=== PATIENT | female | born 1945 | race Caucasian/White ===

== ENCOUNTER 2018-03-04 16:05 | Emergency (ER) | payer MEDICARE ==
[2018-03-04 16:19] VITALS: BP 146/58
--- NOTE | 2018-03-04 16:26 | ED ---
Upper Extremity Pain - HPI Summary HPI Summary: 72 yr old female with the complaint of left elbow, wrist pain. The patient fell off her porch and landed with palm of her hand striking concrete. The patient complains of pain to the left elbow and also over the distal radius of the left wrist. No STS. no bruise. She did not pass out. she was talking to her son and not paying attention to a step and fell as a result. The pain is moderate and worse with movement. - History of Current Complaint Chief Complaint: UCUpperExtremity Stated Complaint: LEFT ARM/HAND PAIN (JUST FELL) Time Seen by Provider: 03/04/18 16:23 - Allergies/Home Medications Allergies/Adverse Reactions: Allergies Allergy/AdvReac Type Severity Reaction Status Date / Time articaine Allergy Unknown Verified 03/04/18 16:21 Reaction Details benzocaine Allergy Unknown Verified 03/04/18 16:21 Reaction Details Cephalosporins Allergy See Comment Verified 03/04/18 16:21 Penicillins Allergy Swelling Verified 03/04/18 16:21 Of Face,Lips,& Throat Sulfa (Sulfonamide Allergy Unknown Verified 03/04/18 16:21 Antibiotics) Reaction Details PMH/Surg Hx/FS Hx/Imm Hx Previously Healthy: Yes Endocrine/Hematology History: Denies: Hx Diabetes Cardiovascular History: Reports: Hx Angina, Hx Hypercholesterolemia, Hx Hypertension Denies: Hx Coronary Artery Disease, Hx Myocardial Infarction, Hx Valvular Heart Disease Respiratory History: Denies: Hx Asthma, Hx Chronic Obstructive Pulmonary Disease (COPD) History: Reports: Hx Kidney Stones Musculoskeletal History: Reports: Hx Back Problems - chronic back pain Denies: Hx Osteoporosis Sensory History: Reports: Hx Contacts or Glasses Opthamlomology History: Reports: Hx Contacts or Glasses - Cancer History Hx Chemotherapy: No Hx Radiation Therapy: No - Surgical History Surgery Procedure, Year, and Place: R OVARY CYST REMOVED Infectious Disease History: No Infectious Disease History: Denies: Traveled Outside the [place] in Last 30 Days - Family History Known Family History: Positive: None - Social History Alcohol Use: None Substance Use Type: Reports: None Smoking Status (MU): Former Smoker Have You Smoked in the Last Year: No Review of Systems Constitutional: Negative Positive: Other - elbow and wrist pain All Other Systems Reviewed And Are Negative: Yes Physical Exam Triage Information Reviewed: Yes Vital Signs On Initial Exam: Initial Vitals Temp Pulse Resp BP Pulse Ox 97.5 F 104 21 146/58 99 03/04/18 16:15 03/04/18 16:15 03/04/18 16:15 03/04/18 16:15 03/04/18 16:15 Vital Signs Reviewed: Yes Appearance: Positive: Well-Appearing, No Pain Distress Skin: Positive: Warm Head/Face: Positive: Normal Head/Face Inspection Eyes: Positive: EOMI ENT: Positive: Normal ENT inspection Neck: Positive: Nontender Respiratory/Lung Sounds: Positive: Clear to Auscultation, Breath Sounds Present Cardiovascular: Positive: Pulses are Symmetrical in both Upper and Lower Extremities - radial pulse strong. Abdomen Description: Negative: Distended Musculoskeletal: Positive: Other - She has tenderness over the radial head and over the distal radius left arm. No STS or bruising present. The left clavicle and left shoulder are non tender and full range of motion. Left hand is without tenderness, no deformity, no bruises. Neurological: Positive: Sensory/Motor Intact, Alert, Oriented to Person Place, Time, CN Intact II-III Psychiatric: Positive: Normal AVPU Assessment: Alert - Grant Coma Scale Best Eye Response: 4 - Spontaneous Best Motor Response: 6 - Obeys Commands Best Verbal Response: 5 - Oriented Coma Scale Total: 15 Diagnostics - Vital Signs Vital Signs Temp Pulse Resp BP Pulse Ox 03/04/18 16:15 97.5 F 104 21 146/58 99 - Laboratory Lab Statement: Any lab studies that have been ordered have been reviewed, and results considered in the medical decision making process. - Radiology left wrist, forearm, elbow Xray Interpretation: No Acute Changes Radiology Interpretation Completed By: Radiologist Course/Dx - Course Course Of Treatment: 72 yrold female with left forearm elbow wrist pain after breaking fall with her left hand. - Diagnoses Provider Diagnoses: Contusion of arm, left, Hypertension Discharge - Sign-Out/Discharge Documenting (check all that apply): Patient Departure - Discharge Plan Condition: Good Disposition: HOME Patient Education Materials: Contusion in Adults (ED), Hypertension (ED) Referrals: Florentin Salazar MD [Primary Care Provider] - 3 Days - Billing Disposition and Condition Condition: GOOD Disposition: Home
--- NOTE | 2018-03-04 17:04 | RAD ---
INDICATION: Left upper terminate pain after a fall COMPARISON: None. TECHNIQUE: 4 views left elbow, 2 views of the left forearm and 3 views left wrist. REPORT: The visualized bones of the left elbow are well corticated and properly aligned. There is no radiographically apparent fracture or dislocation. There is no radiographic evidence of pathologic joint effusion. IMPRESSION: No radiographically apparent fracture or dislocation involving the left elbow, forearm or wrist. If the patient's symptoms persist further follow-up imaging is recommended.
== END 2018-03-04 17:16 | disposition home or self-care (01) ==
LOC: UCCORT 16:05
DX: S50.02XA Contusion of left elbow, initial encounter (principal); S60.212A Contusion of left wrist, initial encounter; I10 Essential (primary) hypertension; G89.29 Other chronic pain; M54.9 Dorsalgia, unspecified; Z88.4 Allergy status to anesthetic agent; Z88.8 Allergy status to other drugs, medicaments and biological substances; Z88.0 Allergy status to penicillin; Z88.1 Allergy status to other antibiotic agents; Z88.2 Allergy status to sulfonamides; Z87.891 Personal history of nicotine dependence; Y92.89 Other specified places as the place of occurrence of the external cause; W19.XXXA Unspecified fall, initial encounter; Y92.9 Unspecified place or not applicable
CPT/HCPCS: 99211; G0463

== ENCOUNTER 2018-07-01 09:47 | Emergency (ER) | payer MEDICARE ==
--- OUTSIDE RECORDS SUMMARY | 2018-07-01 10:03 | XMS REPORT ---
:1945 External Reference #:[id number] Author Organization [facility] Address [address] [place] [address] Phone [phone] Care Team Providers Name Role Phone Florentin Salazar MD Primary Care Physician Unavailable Payers Type Date Identification Numbers Payment Provider Subscriber Medicare Primary Policy Number: [id number] Medicare Masha Paz PayID: [id number] [address] [place] [address] Medigap Part B Effective: 2012 Policy Number: [id number] Medicare Masha Paz Expires: 2018 PayID: [id number] [address] [place] [address] Medigap Part B Effective: Policy Number: [employer] Masha Paz 2012 [id number] Healthcare PayID: [id number] [address] [place] [address] Advance Directives Type Date Description Status Comment Other Directive 05/31/2017 [facility] Care Proxy Current and Verified Problems Date Description Provider Status Onset: 02/02/2015 Benign essential hypertension Florentin Salazar M.D. Active Onset: 02/18/2015 Gastroesophageal reflux disease Florentin Salazar M.D. Active Onset: 03/02/2015 Generalized anxiety disorder Florentin Saalzar M.D. 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 Active Onset: 01/06/2016 Mixed hyperlipidemia Florentin Salazar M.D. Active Onset: 03/19/2018 Arthralgia of the upper arm Florentin Salazar M.D. Active Family History Date Family Member(s) Problem(s) Comments Father Heart Disease ETOH Abuse Mother Lung Cancer ETOH Abuse Age 75 Siblings 2 1 Brother - MVA - Opioid addict Age 72 1 Sister - Emphysema, Back issues, HTN Age 55 Social History Type Date Description Comments Occupation Retired Cigars Never Smoked Cigars Pipe Never Smoked A Pipe Smokeless Tobacco Never Used Smokeless Tobacco ETOH Use Denies alcohol use Smoking Patient is a former smoker Quit age 32 Recreational Drug Use Denies Drug Use Allergies, Adverse Reactions, Alerts Date Description Reaction Status Severity Comments 02/02/2015 Cephalosporins Anaphylaxis active Severe 02/02/2015 Penicillins burning sensation in active Moderate mouth 02/02/2015 Sulfa Antibiotics burning sensation in active Moderate to mouth Severe 02/02/2015 Bactrim burning sensation in active Moderate to mouth Severe 02/02/2015 Latex active Moderate to Severe 02/02/2015 Benzocaine active 02/02/2015 Septocaine active 02/02/2015 Articaine active 02/22/2015 Omeprazole palpitation active palpitations Medications Medication Date Status Form Strength Qnty SIG Indications Ordering Provider Acetaminophen 05/31/ Active Tablets 325mg 60tabs 2 tablets Eleanor 2016 by mouth Varn, N.P. every 6 hours as needed for pain/feve r Alprazolam 05/31/ Active Tablets 0.25mg 30tabs one by Z00.01 Eleanor 2016 Dispers mouth up Varn, N.P. to two times daily as needed for anxiety Motrin Ib / Active Tablets 200mg as needed Unknown 0000 Amlodipine / Active Tablets 5mg 60tabs take one Florentin Besylate 0000 tablet by Pachika, mouth M.D. twice daily Escitalopram 03/02/ Hx Tablets 5mg 21tabs 1 by 300.02 Florentin Oxalate 2014 - mouth Pachikara, 03/03/ every day M.D. 2014 x 1 week then 2 tab daily Alprazolam 02/23/ Hx Tablets 0.25mg 30tabs one by F41.1 Florentin 2014 - Dispers mouth up Pachikara, 05/29/ to two M.D. 2016 times daily as needed for anxiety Omeprazole 02/21/ Hx Capsules 20mg 60caps 1 by 530.81 Florentin 2014 - DR mouth in Pachikara, 02/22/ am in M.D. 2014 empty stomach and 1 cap 1 h before dinner Omeprazole 02/18/ Hx Tablets DR 20mg 30tabs 1 by 530.81 Florentin 2015 - mouth Pachikara, 02/21/ daily in M.DBritta 2014 the morning in empty stomach Aspirin / Hx Tablets 81mg 1 by Unknown 0000 - mouth 02/18/ every day 2014 Amlodipine / Hx Tablets 5mg 30tabs 1 by Florentin Besylate 0000 - mouth Pachikara, 02/21/ every day M.DBritta 2014 Alprazolam / Hx Tablets 0.25mg one by Unknown 0000 - Dispers mouth up 03/02/ to three 2015 times daily as needed for anxiety Debrox / Hx Solution 6.5% 5 drops Unknown 0000 - in each ear every 2014 month Tylenol / Hx Tablets 325mg 2 tabs as Unknown 0000 - needed 2015 Vital Signs Date Vital Result Comment 06/05/2018 Height 58.5 inches 131 Weight 131.00 lb Heart Rate 93 /min BP Systolic 154 mmHg BP Diastolic 79 mmHg Body Temperature 97.1 F O2 % BldC Oximetry 97 % BMI (Body Mass Index) 26.9 kg/m2 03/26/2018 Height 58.25 inches 4'10.25" Weight 130.25 lb Heart Rate 78 /min BP Systolic 146 mmHg BP Diastolic 78 mmHg Respiratory Rate 12 /min Pain Level 4 BMI (Body Mass Index) 27.0 kg/m2 03/19/2018 Height 58.25 inches 4'10.25" Weight 129.00 lb Heart Rate 96 /min BP Systolic Sitting 147 mmHg BP Diastolic Sitting 83 mmHg O2 % BldC Oximetry 98 % BMI (Body Mass Index) 26.7 kg/m2 10/09/2017 Height 58.25 inches 4'10.25" Weight 129.50 lb Heart Rate 90 /min BP Systolic Sitting 160 mmHg BP Diastolic Sitting 82 mmHg O2 % BldC Oximetry 97 % BMI (Body Mass Index) 26.8 kg/m2 05/31/2017 Height 58.25 inches 4'10.25" Weight 130.00 lb Heart Rate 108 /min BP Systolic 150 mmHg BP Diastolic 72 mmHg Body Temperature 97.3 F O2 % BldC Oximetry 97 % BMI (Body Mass Index) 26.9 kg/m2 03/13/2017 Weight 130.00 lb Heart Rate 91 /min BP Systolic Sitting 170 mmHg BP Diastolic Sitting 86 mmHg O2 % BldC Oximetry 97 % 09/11/2016 Weight 124.38 lb Heart Rate 96 /min BP Systolic Sitting 156 mmHg BP Diastolic Sitting 82 mmHg Body Temperature 96.7 F O2 % BldC Oximetry 98 % 05/29/2016 Height 58 inches 4'10" Weight 127.00 lb Heart Rate 103 /min BP Systolic 141 mmHg BP Diastolic 83 mmHg Body Temperature 97.8 F O2 % BldC Oximetry 98 % BMI (Body Mass Index) 26.5 kg/m2 01/18/2016 Height 58.5 inches 4'10.50" Weight 123.00 lb Heart Rate 88 /min BP Systolic Sitting 158 mmHg BP Diastolic Sitting 84 mmHg Body Temperature 96.9 F O2 % BldC Oximetry 99 % BMI (Body Mass Index) 25.3 kg/m2 01/06/2016 Weight 123.00 lb Heart Rate 60 /min BP Systolic Sitting 176 mmHg BP Diastolic Sitting 88 mmHg Body Temperature 97.0 F O2 % BldC Oximetry 97 % 09/07/2015 Weight 121.00 lb Heart Rate 80 /min BP Systolic Sitting 152 mmHg BP Diastolic Sitting 79 mmHg Body Temperature 97.0 F O2 % BldC Oximetry 99 % 03/31/2015 Height 59.75 inches 4'11.75" Weight 123.00 lb Heart Rate 80 /min BP Systolic Sitting 124 mmHg BP Diastolic Sitting 70 mmHg Respiratory Rate 14 /min Body Temperature 98.8 F BMI (Body Mass Index) 24.2 kg/m2 03/22/2015 Height 59.75 inches 4'11.75" Weight 122.00 lb Heart Rate 85 /min BP Systolic Sitting 149 mmHg BP Diastolic Sitting 77 mmHg Body Temperature 98.4 F O2 % BldC Oximetry 96 % BMI (Body Mass Index) 24.0 kg/m2 03/16/2015 Height 59.75 inches 4'11.75" Weight 123.00 lb Heart Rate 82 /min BP Systolic Sitting 128 mmHg BP Diastolic Sitting 72 mmHg O2 % BldC Oximetry 98 % BMI (Body Mass Index) 24.2 kg/m2 03/07/2015 Height 59.75 inches 4'11.75" Weight 124.00 lb Heart Rate 108 /min BP Systolic Sitting 138 mmHg BP Diastolic Sitting 80 mmHg Body Temperature 98.1 F Pain Level 9 9/10 O2 % BldC Oximetry 93 % BMI (Body Mass Index) 24.4 kg/m2 03/02/2015 Weight 123.50 lb Heart Rate 86 /min BP Systolic Sitting 126 mmHg BP Diastolic Sitting 78 mmHg O2 % BldC Oximetry 99 % 03/01/2015 Weight 128.00 lb Heart Rate 76 /min BP Systolic Sitting 120 mmHg BP Diastolic Sitting 80 mmHg 02/21/2015 Height 59.75 inches 4'11.75" Weight 128.25 lb Heart Rate 86 /min BP Systolic Sitting 148 mmHg BP Diastolic Sitting 84 mmHg Body Temperature 98.8 F O2 % BldC Oximetry 96 % BMI (Body Mass Index) 25.3 kg/m2 02/18/2015 Height 59.75 inches 4'11.75" Weight 125.00 lb Heart Rate 82 /min BP Systolic Sitting 140 mmHg BP Diastolic Sitting 82 mmHg O2 % BldC Oximetry 97 % BMI (Body Mass Index) 24.6 kg/m2 02/02/2015 Height 59.75 inches 4'11.75" Weight 126.00 lb Heart Rate 79 /min BP Systolic Sitting 159 mmHg BP Diastolic Sitting 88 mmHg Body Temperature 97.8 F O2 % BldC Oximetry 97 % BMI (Body Mass Index) 24.8 kg/m2 Results Test Date Test Result H/L Range Note Lipid Profile (Trig/Chol/HDL) 05/29/2018 Triglycerides 82 mg/dL 1 Cholesterol 209 mg/dL 2 HDL Cholesterol 59.4 mg/dL 3 LDL Cholesterol 133 mg/dL 4 Comp Metabolic Panel 05/24/2017 Sodium 140 mmol/L 133-145 Potassium 4.0 mmol/L 3.5-5.0 Chloride 106 mmol/L 101-111 Co2 Carbon Dioxide 26 mmol/L 22-32 Anion Gap 8 mmol/L 2-11 Glucose 91 mg/dL 70-100 Blood Urea Nitrogen 19 mg/dL 6-24 Creatinine 0.94 mg/dL 0.51-0.95 BUN/Creatinine Ratio 20.2 High 8-20 Calcium 9.4 mg/dL 8.6-10.3 Total Protein 6.8 g/dL 6.4-8.9 Albumin 4.3 g/dL 3.2-5.2 Globulin 2.5 g/dL 2-4 Albumin/Globulin Ratio 1.7 1-3 Total Bilirubin 0.70 mg/dL 0.2-1.0 Alkaline Phosphatase 51 U/L 34-104 Alt 11 U/L 7-52 Ast 18 U/L 13-39 Egfr Non- 59.0 >60 Egfr 75.9 >60 5 Lipid Profile (Trig/Chol/HDL) 05/24/2017 Triglycerides 69 mg/dL 6 Cholesterol 221 mg/dL 7 HDL Cholesterol 58.4 mg/dL 8 LDL Cholesterol 149 mg/dL 9 Comp Metabolic Panel 12/29/2015 Sodium 140 mmol/L 133-145 10 Potassium 4.0 mmol/L 3.5-5.0 10 Chloride 106 mmol/L 101-111 10 Co2 Carbon Dioxide 28 mmol/L 22-32 10 Anion Gap 6 mmol/L 2-11 10 Glucose 83 mg/dL 70-100 10 Blood Urea Nitrogen 15 mg/dL 6-24 10 Creatinine 0.97 mg/dL High 0.51-0.95 10 BUN/Creatinine Ratio 15.5 8-20 10 Calcium 9.3 mg/dL 8.6-10.3 10 Total Protein 6.5 g/dL 6.4-8.9 10 Albumin 4.0 g/dL 3.2-5.2 10 Globulin 2.5 g/dL 2-4 10 Albumin/Globulin Ratio 1.6 1-3 10 Total Bilirubin 1.00 mg/dL 0.2-1.0 10 Alkaline Phosphatase 53 U/L 34-104 10 Alt 7 U/L 7-52 10 Ast 17 U/L 13-39 10 Egfr Non- 57.1 >60 10 Egfr 73.4 >60 10, 11 Lipid Profile (Trig/Chol/HDL) 12/29/2015 Triglycerides 73 mg/dL 10, 12 Cholesterol 211 mg/dL 10, 13 HDL Cholesterol 55.8 mg/dL 10, 14 LDL Cholesterol 141 mg/dL 10, 15 Laboratory test finding 03/31/2015 Cytology SEE RESULT BELOW 16 Human Papilloma Virus Rna Negative Negative 17 CBC Auto Diff 03/16/2015 White Blood Count 16.7 10^3/uL High 4.8-10.8 Red Blood Count 4.23 10^6/uL 4.0-5.4 Hemoglobin 13.1 g/dL 12.0-16.0 Hematocrit 39 % 35-47 Mean Corpuscular Volume 92 fL 80-97 Mean Corpuscular Hemoglobin 31 pg 27-31 Mean Corpuscular HGB Conc 34 g/dL 31-36 Red Cell Distribution Width 13 % 10.5-15 Platelet Count 253 10^3/uL 150-450 Mean Platelet Volume 7 um3 Low 7.4-10.4 Abs Neutrophils 14.8 10^3/uL High 1.5-7.7 Abs Lymphocytes 1.0 10^3/uL 1.0-4.8 Abs Monocytes 0.9 10^3/uL High 0-0.8 Abs Eosinophils 0 10^3/uL 0-0.6 Abs Basophils 0 10^3/uL 0-0.2 Abs Nucleated RBC 0 10^3/uL Granulocyte % 88.6 % High 38-83 Lymphocyte % 5.7 % Low 25-47 Monocyte % 5.2 % 1-9 Eosinophil % 0.2 % 0-6 Basophil % 0.3 % 0-2 Nucleated Red Blood Cells % 0 Laboratory test finding 03/16/2015 Erythrocyte Sed Rate 82 mm/Hr High 0- 40 Lipid Profile (Trig/Chol/HDL) 03/16/2015 Triglycerides 87 mg/dL 18 Cholesterol 215 mg/dL 19 HDL Cholesterol 51.5 mg/dL 20 LDL Cholesterol 146 mg/dL 21 Laboratory test finding 03/16/2015 Blood Culture SEE RESULT BELOW 22 Urinalysis Profile 03/16/2015 Urine Color Yellow Urine Appearance Turbid Urine Specific [place] 1.030 1.010-1.030 Urine pH 5.0 5-9 Urine Urobilinogen Negative Negative Urine Ketones Trace Negative Urine Protein 2+(100 mg/dL) Negative Urine Leukocytes Trace Negative Urine Blood Negative Negative Urine Nitrite Negative Negative Urine Bilirubin Negative Negative Urine Glucose Negative Negative Urine White Blood Cell Absent Absent Urine Red Blood Cell Absent Absent Urine Bacteria 3+ Absent Ua And Culture 03/16/2015 Urine Culture And SEE RESULT BELOW 23 Sensitivity Sensitivities Basic Metabolic Panel 03/14/2015 Sodium 140 mmol/L 133-145 Potassium 4.2 mmol/L 3.5-5.0 Chloride 104 mmol/L 101-111 Co2 Carbon Dioxide 27 mmol/L 22-32 Anion Gap 9 mmol/L 2-11 Glucose 82 mg/dL 70-100 Blood Urea Nitrogen 14 mg/dL 6-24 Creatinine 0.86 mg/dL 0.51-0.95 BUN/Creatinine Ratio 16.3 8-20 Calcium 9.4 mg/dL 8.6-10.3 Egfr Non- 65.8 >60 Egfr 84.6 >60 24 Lipid Profile (Trig/Chol/HDL) 03/14/2015 Triglycerides 118 mg/dL 25 Cholesterol 224 mg/dL 26 HDL Cholesterol 43.4 mg/dL 27 LDL Cholesterol 157 mg/dL 28 Laboratory test finding 03/11/2015 Erythrocyte Sed Rate 65 mm/Hr High 0- 40 Laboratory test finding 03/07/2015 Karli (Antinuclear Negative Negative Antibodies) Rheumatoid Factor <15 IU/mL <15 29 Erythrocyte Sed Rate 89 mm/Hr High 0-40 Laboratory test finding 02/19/2015 Lipase 41 U/L 11.0-82.0 Troponin-I (TnI) 0.00 ng/mL <0.03 30 C Reactive Protein 5.72 mg/L High < 5.00 31 TSH (Thyroid Stim Horm) 2.49 ?IU/mL 0.34-5.60 Cortisol 23.31 ?g/dL 32 Erythrocyte Sed Rate 10 mm/Hr 0-40 Comp Metabolic Panel 02/19/2015 Sodium 136 mmol/L 133-145 Potassium 3.5 mmol/L 3.5-5.0 Chloride 103 mmol/L 101-111 Co2 Carbon Dioxide 26 mmol/L 22-32 Anion Gap 7 mmol/L 2-11 Glucose 111 mg/dL High 70-100 Blood Urea Nitrogen 12 mg/dL 6-24 Creatinine 0.88 mg/dL 0.51-0.95 BUN/Creatinine Ratio 13.6 8-20 Calcium 9.4 mg/dL 8.6-10.3 Total Protein 7.0 g/dL 6.4-8.9 Albumin 4.1 g/dL 3.2-5.2 Globulin 2.9 g/dL 2-4 Albumin/Globulin Ratio 1.4 1-3 Total Bilirubin 0.50 mg/dL 0.2-1.0 Alkaline Phosphatase 55 U/L 34-104 Alt 7 U/L 7-52 Ast 15 U/L 13-39 Egfr Non- 64.1 >60 Egfr 82.4 >60 33 Laboratory test finding 02/19/2015 Lactic Acid 1.1 mmol/L 0.5-2.2 CBC Auto Diff 02/19/2015 White Blood Count 13.1 10^3/uL High 4.8-10.8 Red Blood Count 4.87 10^6/uL 4.0-5.4 Hemoglobin 14.9 g/dL 12.0-16.0 Hematocrit 45 % 35-47 Mean Corpuscular Volume 92 fL 80-97 Mean Corpuscular Hemoglobin 31 pg 27-31 Mean Corpuscular HGB Conc 33 g/dL 31-36 Red Cell Distribution Width 13 % 10.5-15 Platelet Count 218 10^3/uL 150-450 Mean Platelet Volume 7 um3 Low 7.4-10.4 Abs Neutrophils 10.8 10^3/uL High 1.5-7.7 Abs Lymphocytes 1.4 10^3/uL 1.0-4.8 Abs Monocytes 0.7 10^3/uL 0-0.8 Abs Eosinophils 0.1 10^3/uL 0-0.6 Abs Basophils 0.1 10^3/uL 0-0.2 Abs Nucleated RBC 0.01 10^3/uL Granulocyte % 82.4 % 38-83 Lymphocyte % 10.7 % Low 25-47 Monocyte % 5.2 % 1-9 Eosinophil % 1.0 % 0-6 Basophil % 0.7 % 0-2 Nucleated Red Blood Cells % 0 Laboratory test finding 02/19/2015 Troponin-I (TnI) 0.00 ng/mL <0.03 34 Laboratory test finding 02/19/2015 Stool Occult Blood SEE RESULT BELOW 35 Laboratory test finding 02/19/2015 Lactic Acid 1.6 mmol/L 0.5-2.2 Troponin-I (TnI) 0.00 ng/mL <0.03 36 1 Desirable: <150 Borderline High: 150-199 High: 200-499 Very High: >500 2 Desirable: <200 Borderline High: 200-239 High: >239 3 Low: <40 Desirable: 40-60 High: >60 4 Desirable: <100 Near Optimal: 100-129 Borderline High: 130-159 High: 160-189 Very High: >189 5 Because ethnic data is not always readily available, this report includes an eGFR for both -Americans and non- Americans. The National Kidney Disease Education Program (NKDEP) does not endorse the use of the MDRD equation for patients that are not between the ages of 18 and 70, are , have extremes of body size, muscle mass, or nutritional status, or are non- or non-. According to the National Kidney Foundation, irrespective of diagnosis, the stage of the disease is based on the level of kidney function: Stage Description GFR(mL/min/1.73 m(2)) 1 Kidney damage with normal or decreased GFR 90 2 Kidney damage with mild decrease in GFR 60-89 3 Moderate decrease in GFR 30-59 4 Severe decrease in GFR 15-29 5 Kidney failure <15 (or dialysis) 6 Desirable: <150 Borderline High: 150-199 High: 200-499 Very High: >500 7 Desirable: <200 Borderline High: 200-239 High: >239 8 Low: <40 Desirable: 40-60 High: >60 9 Desirable: <100 Near Optimal: 100-129 Borderline High: 130-159 High: 160-189 Very High: >189 10 FASTING 11 Because ethnic data is not always readily available, this report includes an eGFR for both -Americans and non- Americans. The National Kidney Disease Education Program (NKDEP) does not endorse the use of the MDRD equation for patients that are not between the ages of 18 and 70, are , have extremes of body size, muscle mass, or nutritional status, or are non- or non-. According to the National Kidney Foundation, irrespective of diagnosis, the stage of the disease is based on the level of kidney function: Stage Description GFR(mL/min/1.73 m(2)) 1 Kidney damage with normal or decreased GFR 90 2 Kidney damage with mild decrease in GFR 60-89 3 Moderate decrease in GFR 30-59 4 Severe decrease in GFR 15-29 5 Kidney failure <15 (or dialysis) 12 Desirable <150 Borderline high 150-199 High 200-499 Very High >500 13 Desirable <200 Borderline high 200-239 High >239 14 Low <40 Desirable: 40-60 High: >60 15 Desirable: <100 mg/dL Near Optimal: 100-129 mg/dL Borderline High: 130-159 mg/dL High: 160-189 mg/dL Very High: >189 mg/dL 16 SEE RESULT BELOW Name: MASHA PAZ : [address]: Best Simons EXPEDITION SUPERVISOR Acct: [id number] Unit: [id number] AGE: 69 Location: [facility] Re03/31/15 SEX: F Status: REG REF SPEC: [id number] OVI: 03/31/15-[address]: Best Simons EXPEDITION SUPERVISOR REQ: [id number] RECD: 03/31/15124 STATUS: SOUT _ ORDERED: IMAGE ANALYSIS, HPV/Thin Prep, HPV 16/18 GENE FINAL DIAGNOSIS Negative for Intraepithelial lesion or Malignancy A. Ectocervical/Endocervical Specimen Adequacy: Satisfactory of evaluation Transformation zone component identified Patient Information: HPV: High risk HPV RNA testing regardless of pap results. HPV 16/18 Genotype for HPV pos Actual Specimen Date: 03/31/15 Spec Date if unknown: 7 yrs ago ?: N Post Menopausal?: Y Hysterectomy?: N Previous Abnormal Pap Smears?:Y If Yes, enter Diagnosis: unsure but patient states f/u neagative many yrs ago Date Time Test Result Flag (u) Normal Range 03/31/15 1043 HPV RNA Negative Negative The high-risk HPV types detected by the assay include: 16, 18, 31, 33, 35, 39, 45, 51, 52, 56, 58, 59, 66, and 68. Signed (signature on file) BRODY Norris ([facility]) 04/01 1408 This Pap test was evaluated with the assistance of the SoundstachePrep Test Imaging System. Due to cytologic findings at the airborne and air delivery specialist microscope, comprehensive manual rescreening by a Vault Mechanic may be required. The Pap Smear is a screening test designed to aid in the detection of premalignant and malignant conditions of the uterine cervix. It is not a diagnostic procedure and should not be used as the sole means of detecting cervical cancer. Both false- positive and false- negative reports do occur. Depending on your risk status, a Pap smear should be obtained and evaluated every 1-3 years. END OF REPORT * ML=Testing performed at Main Lab DEPARTMENT OF PATHOLOGY, [address] [place] [address] Jeffery Rayo M.D. Director [facility] # [id number] RUN DATE: 04/01/15 [facility] LAB LIVE PAGE 1 Patient: MASHA PAZ [id number] (Continued) 17 The high-risk HPV types detected by the assay include: 16, 18, 31, 33, 35, 39, 45, 51, 52, 56, 58, 59, 66, and 68. 18 Desirable <150 Borderline high 150-199 High 200-499 Very High >500 19 Desirable <200 Borderline high 200-239 High >239 20 Low <40 Desirable: 40-60 High: >60 21 Desirable: <100 mg/dL Near Optimal: 100-129 mg/dL Borderline High: 130-159 mg/dL High: 160-189 mg/dL Very High: >189 mg/dL 22 SEE RESULT BELOW Name: MASHA PAZ : [address]: Florentin Salazar MD Acct: [id number] Unit: [id number] AGE: 69 Location: [facility] Re03/16/15 SEX: F Status: REG REF SPEC: [id number] OVI: 03/16/15-1103 [facility] DR: Florentin Salazar MD REQ: [id number] RECD: 03/16/15 STATUS: COMP _ SOURCE: BLOOD,[facility]: ORDERED: Blood Cult Procedure Result Verified Site Aerobic Culture Bottle Final 03/21/15- 1111 ML No Growth Day 5 Anaerobic Culture Bottle Final 03/21/15- 1111 ML No Growth Day 5 * ML - MAIN LAB ([facility]) . END OF REPORT * ML=Testing performed at Main Lab DEPARTMENT OF PATHOLOGY, [address] [place] [address] Jeffery Rayo M.D. Director [facility] # [id number] 23 SEE RESULT BELOW Name: MASHA PAZ : [address]: Florentin Salazar MD Acct: [id number] Unit: [id number] AGE: 69 Location: [facility] Re03/16/15 SEX: F Status: REG REF SPEC: [id number] OVI: 03/16/15-[address]: Florentin Salazar MD REQ: [id number] RECD: 03/16/15-1110 STATUS: COMP _ SOURCE: URINE SPDESC: ORDERED: Urine Culture Procedure Result Verified Site Urine Culture Final 03/18/15- 1023 ML Organism 1 NORMAL MONA Bussey Count 25-50,000 (Moderate) CFU/ML * ML - [facility] ([facility]) . END OF REPORT * ML=Testing performed at Main Lab DEPARTMENT OF PATHOLOGY, [address] [place] [address] Jeffery Rayo M.D. Director [facility] # [id number] 24 Because ethnic data is not always readily available, this report includes an eGFR for both -Americans and non- Americans. The National Kidney Disease Education Program (NKDEP) does not endorse the use of the MDRD equation for patients that are not between the ages of 18 and 70, are , have extremes of body size, muscle mass, or nutritional status, or are non- or non-. According to the National Kidney Foundation, irrespective of diagnosis, the stage of the disease is based on the level of kidney function: Stage Description GFR(mL/min/1.73 m(2)) 1 Kidney damage with normal or decreased GFR 90 2 Kidney damage with mild decrease in GFR 60-89 3 Moderate decrease in GFR 30-59 4 Severe decrease in GFR 15-29 5 Kidney failure <15 (or dialysis) 25 Desirable <150 Borderline high 150-199 High 200-499 Very High >500 26 Desirable <200 Borderline high 200-239 High >239 27 Low <40 Desirable: 40-60 High: >60 28 Desirable: <100 mg/dL Near Optimal: 100-129 mg/dL Borderline High: 130-159 mg/dL High: 160-189 mg/dL Very High: >189 mg/dL 29 Test Performed by: [address] [address] Immigration Consultant: Aguila Gibbons II, M.D., Ph.D. 30 Reference Range and Interpretation: TnI (ng/mL) Interpretation Less Than 0.03 ng/mL Not supportive of diagnosis of [place] 0.03 - 0.50 ng/mL Indeterminate: suggest serial studies if clinically indicated. Greater than 0.5 ng/mL Consistent with diagnosis of [place] 31 Acute inflammation: >10.00 32 AM 8.7-22.4 PM <10 33 Because ethnic data is not always readily available, this report includes an eGFR for both -Americans and non- Americans. The National Kidney Disease Education Program (NKDEP) does not endorse the use of the MDRD equation for patients that are not between the ages of 18 and 70, are , have extremes of body size, muscle mass, or nutritional status, or are non- or non-. According to the National Kidney Foundation, irrespective of diagnosis, the stage of the disease is based on the level of kidney function: Stage Description GFR(mL/min/1.73 m(2)) 1 Kidney damage with normal or decreased GFR 90 2 Kidney damage with mild decrease in GFR 60-89 3 Moderate decrease in GFR 30-59 4 Severe decrease in GFR 15-29 5 Kidney failure <15 (or dialysis) 34 Reference Range and Interpretation: TnI (ng/mL) Interpretation Less Than 0.03 ng/mL Not supportive of diagnosis of [place] 0.03 - 0.50 ng/mL Indeterminate: suggest serial studies if clinically indicated. Greater than 0.5 ng/mL Consistent with diagnosis of [place] 35 SEE RESULT BELOW Name: MASHA PAZ : [address]: Liam Luna Acct: [id number] Unit: [id number] AGE: 69 Location: ED Re02/19/15 SEX: F Status: REG ER SPEC: [id number] OVI: 02/19/[address]: Jian Iraheta MD REQ: [id number] RECD: 02/19/15 STATUS: EULOGIO WATSON DR: Liam Garza MD _ SOURCE: STOOL SPDESC: ORDERED: Hemoccult Procedure Result Verified Site Stool Occult Blood Final 02/19/15936 ML Stool Occult Blood Negative * ML - MAIN LAB ([facility]) . END OF REPORT * ML=Testing performed at Main Lab DEPARTMENT OF PATHOLOGY, [address] [place] [address] Jeffery Rayo M.D. Director [facility] # [id number] 36 Reference Range and Interpretation: TnI (ng/mL) Interpretation Less Than 0.03 ng/mL Not supportive of diagnosis of UT 0.03 - 0.50 ng/mL Indeterminate: suggest serial studies if clinically indicated. Greater than 0.5 ng/mL Consistent with diagnosis of [place] Procedures Date CPT Code Description Status Comment 06/24/2017 Mammogram Completed 06/05/2016 Mammogram Completed 03/22/2015 Bone Mineral Density Test Completed 02/23/2015 07595 ECHO Transthoracic, Real-Time 2D Completed With Doppler And Color Flow 02/15/2015 Mammogram Completed 01/28/2015 35825 Treadmill Interp/Report Only Completed 01/28/2015 85654 Stress Test Supervsn W/Out I/R Completed 01/27/2015 25815 ECHO Transthorasic Realtime 2D W Completed Doppler & Color Flow Hosp 08/05/2009 Colonoscopy Completed normal per patient Encounters Type Date Location Provider CPT E/M Dx Office Visit 03/26/2018 [facility] Jessica Pineda, 81777 S52.125A 8:30a Of Kalen Weiss Office Visit 03/19/2018 [facility] Florentin Salazar 59522 I10 9:00a - Jose Miguel Weiss E78.2 M25.522 Office Visit 10/09/2017 3:40p [facility] Florentin Salazar M.D. 42797 I10 - Jose Miguel E78.2 F41.1 Office Visit 03/13/2017 10:40a [facility] Florentin Salazar 97239 I10 - Jose Miguel Weiss Office Visit 09/11/2016 9:40a [facility] Florentin Salazar 61599 R07.9 - Mague Cohen M.D. I10 R05 Office Visit 05/29/2016 10:00a [facility] Eleanor Infante, N.PBritta 81693 Z00.01 - Jose Miguel Z12.31 I10 E78.00 K21.9 F41.1 Office Visit 01/18/2016 8:20a [facility] Florentin Salazar M.D. 44226 I10 - [address] F41.1 Office Visit 01/06/2016 9:40a [facility] Florentin Salazar M.D. 70247 I10 - Jose Miguel E78.2 Office Visit 09/07/2015 10:40a [facility] Florentin Salazar M.D. 07519 I10 - Jose Miguel E78.2 Office Visit 03/31/2015 1:40p [facility] Dedrick Murphy Bernard, 33857 780.60 Infectious Diseases M.D. Office Visit 03/22/2015 11:40a [facility] Baljinder Aguilar M.D. 87053 780.60 - [address] 783.0 783.21 564.09 Office Visit 03/16/2015 10:00a [facility] Florentin Salazar, 24468 V70.0 - Jose Miguel Weiss 401.1 530.81 300.02 780.60 V49.81 272.2 Office Visit 03/07/2015 1:40p [facility] Florentin Salazar, 43159 715.00 Medicine - [place] Noel Weiss 416.0 Office Visit 03/02/2015 3:00p [facility] Florentin Salazar, 29336 300.02 Medicine - Jose Miguel Weiss 723.1 Office Visit 03/01/2015 2:00p [facility] Napier M.D. 57515 380.4 [facility] [place] 389.01 Office Visit 02/21/2015 10:40a [facility] Florentin Salazar, 29044 786.50 Medicine - [place] Noel Weiss 530.81 401.1 789.00 789.01 Office Visit 02/19/2015 12:33p [facility], Lorne Joshi, 67010 458.9 Hospitalists M.DBritta 423.9 786.50 530.81 Office Visit 02/18/2015 10:40a [facility] Florentin Salazar, 47267 380.4 - Jose Miguel Weiss 530.81 Office Visit 02/02/2015 2:00p [facility] Florentin Salazar, 98416 401.1 - Jose Miguel Weiss 380.4 V76.10 Office Visit 01/28/2015 7:04a [facility],suresh Watson N.P. 00469 786.50 Hospitalists 272.4 Office Visit 01/26/2015 7:03a [facility] Tsering Ybarra, EXPEDITION SUPERVISOR 42244 786.50 Assoc, Hospitalists 272.4 Plan of Care Future Appointment(s):09/24/2018 8:20 am - Florentin Salazar M.D. at [facility] - Jtfvplbbm25/01/2018 - Mckya Camp.Shalonda.Z00.00 Encntr for general adult medical exam w/o abnormal findingsComments:For your routine health maintenance: I would encourage you to start a regular exercise program. You need to be getting between 1,000 - 1,200 mg of Calcium in daily. The best way to supplement what you get in your diet is to drink Calcium fortified orange juice. If you take a Calcium supplement be sureit has Vitamin D in it to help absorption. It is advised you receive a Prevnar and a Pneumovax immunization to prevent pneumonia and a Shingrix to prevent shingles.Your colonoscopy is up to date. Youhad this in 2009. You will need this repeated in 2020.Z12.31 Encntr screen mammogram for malignant neoplasm of breastNew Xrays: Mammogram Screening BilComments:I have ordered your routine screening mammogram. The imaging department will give you your results at the time of your visit. I have ordered your routine screening mammogram. The imaging departmentwill give you your results at the time of your visit.F41.1 Generalized anxiety disorderComments:For your anxiety:Continue your current management. If at ay time you feel your symptoms are not wellcontrolled, please contact the office.I10 Essential (primary) hypertensionComments:For your high blood pressure: Continue with your current medication. I would like you to monitor your blood pressure at home. If your readings at home are consistently higher than 140/90, please call the office.E78.2 Mixed hyperlipidemiaComments: Your recent blood work looked good. I will repeat this in 1 year.
[2018-07-01 10:34] VITALS: BP 152/70
--- NOTE | 2018-07-02 08:22 | UC ---
- Progress Note Progress Note: Patient Name: MASHA PAZ Medical Record#: [id number] Ordering Physician: Alecia Bo MD Acct.#: [id number] : 1945 Age: 72 Sex: F Location: [facility] [place], [place] Exam Date: 07/01/18 1141 ADM Status: REG ER Order Information: FOOT RIGHT 3+ VWS Accession Number: [id number] CPT: 92166 Indication: Stubbing injury RIGHT foot. Attention second through fourth digits. Comparison: No relevant prior exams available on the [facility] PACS for comparison. Technique: AP, lateral, and oblique views RIGHT foot. Report: Nondisplaced diaphyseal diaphyseal through distal metaphyseal fracture of the third proximal phalanx. No additional fractures evident. Normal articular alignment. Mild osteoarthritis at the first metatarsal phalangeal joint. Soft tissue swelling about the forefoot. IMPRESSION: #. Nondisplaced diaphyseal diaphyseal through distal metaphyseal fracture of the third proximal phalanx. <Electronically signed by Jose Zuniga MD in OV> 07/01/18 1201 Dictated By: Jose Zuniga MD Dictated Date/Time: 07/01/18 1201 Transcribed Date/Time: 07/01/18 1158 Copy to: CC:Alecia Bo MD; Florentin Salazar MD Imaging - [facility] Imaging [facility] [address] [address] ph ([phone]) ph ([phone]) ph ([phone]) This report is only to be considered final once signed by the Provider(s) as displayed in the "<Electronically Signed by >" field (s). Absence of a signature indicates the report is in a draft status and still needs to be finalized. In the event this document was created by someone other than the signing Provider, the individual initiating the document will be listed in the "Entered by:" or "Dictated by:" lerma. 1 of 1 Course/Dx - Diagnoses Provider Diagnoses: Toe fracture Discharge - Sign-Out/Discharge Documenting (check all that apply): Post-Discharge Follow Up All imaging exams completed and their final reports reviewed: Yes - Discharge Plan Condition: Stable Disposition: HOME Patient Education Materials: Toe Fracture (ED) Referrals: Felix Cantu MD [Medical Doctor] - Florentin Salazar MD [Primary Care Provider] - Brittney Moore MD [Medical Doctor] - Additional Instructions: Please wear boot during the day. Elevate your foot frequently throughout the day. Over the counter tylenol and / or ibuprofen per package instructions as needed for pain. Important to follow up with orthopedic doctor. Follow up within one week. Follow up with Dr. Salazar per routine. Seek medical attention for worse or new problems. - Billing Disposition and Condition Condition: STABLE Disposition: Home
--- NOTE | 2018-09-01 18:24 | UC ---
Lower Extremity/Ankle HPI - HPI Summary HPI Summary: Pleasant 72 yo female c/o Left toe pain s/olast night in the dark stubbed left second and third toes. No pain elsewhere. Not getting better, prompting visit today. No hx previous injury to this site. Painful weight bear. + swelling. - History of Current Complaint Chief Complaint: UCLowerExtremity Stated Complaint: LT FOOT-TOES INJURY Time Seen by Provider: 07/01/18 11:34 Hx Obtained From: Patient Hx Last Menstrual Period: n/a Pain Intensity: 5 Pain Scale Used: 0-10 Numeric - Allergies/Home Medications Allergies/Adverse Reactions: Allergies Allergy/AdvReac Type Severity Reaction Status Date / Time articaine Allergy Unknown Verified 07/01/18 10:31 Reaction Details benzocaine Allergy Unknown Verified 07/01/18 10:31 Reaction Details Cephalosporins Allergy See Comment Verified 07/01/18 10:31 Penicillins Allergy Swelling Verified 07/01/18 10:31 Of Face,Lips,& Throat Sulfa (Sulfonamide Allergy Unknown Verified 07/01/18 10:31 Antibiotics) Reaction Details PMH/Surg Hx/FS Hx/Imm Hx Previously Healthy: Yes - Surgical History Surgical History: Yes Surgery Procedure, Year, and Place: R OVARY CYST REMOVED - Family History Known Family History: Positive: None - Social History Alcohol Use: None Substance Use Type: None Smoking Status (MU): Former Smoker Have You Smoked in the Last Year: No When Did the Patient Quit Smoking/Using Tobacco: 01/17/1985 - Immunization History Most Recent Influenza Vaccination: Never Most Recent Tetanus Shot: Unknown Most Recent Pneumonia Vaccination: Never Review of Systems All Other Systems Reviewed And Are Negative: Yes Constitutional: Positive: Negative Skin: Positive: Negative Eyes: Positive: Negative ENT: Positive: Negative Respiratory: Positive: Negative Cardiovascular: Positive: Negative Gastrointestinal: Positive: Negative Genitourinary: Positive: Negative Motor: Positive: Other - see hpi Neurovascular: Positive: Other - no p/w Musculoskeletal: Positive: Arthralgia Neurological: Positive: Negative Psychological: Positive: Negative Is Patient Immunocompromised?: No Physical Exam Triage Information Reviewed: Yes Appearance: Well-Appearing, Well-Nourished Vital Signs: Initial Vital Signs Temp 98.2 F 07/01/18 10:27 Pulse 90 07/01/18 10:27 Resp 15 07/01/18 10:27 BP 152/70 07/01/18 10:27 Pulse Ox 98 07/01/18 10:27 Vital Signs Reviewed: Yes Eye Exam: Normal - grossly nad ENT Exam: Normal - grossly nad Neck exam: Normal - no c/o pain Respiratory Exam: Normal - no tachypnea, no dyspnea Respiratory: Positive: No respiratory distress, No accessory muscle use Cardiovascular Exam: Normal - hr regular, cap refill good to affected area Abdominal Exam: Normal - no c/o pain Abdomen Description: Positive: Nontender Musculoskeletal Exam: Other Neurological Exam: Normal - grossly nonfocal. distal sens + present LT Psychological Exam: Normal - conversing easily and appropriately Skin Exam: Normal - nondiaphoretic. + ecchymosis distal foot, including toes of complaint Lower Extremity Course/Dx - Course Course Of Treatment: Reviewed xray results with pt. + Nondisplaced diaphyseal through distal metaphyseak fx of the 3rd proximal phalanx. Reviewed offloading recommendation and need for f/u orthopedics. F/u PCP as well. Questions as posed answered to the best of my ability. - Differential Dx/Diagnosis Provider Diagnosis: Toe fracture Discharge - Sign-Out/Discharge Documenting (check all that apply): Patient Departure All imaging exams completed and their final reports reviewed: Yes - Discharge Plan Condition: Stable Disposition: HOME Patient Education Materials: Toe Fracture (ED) Referrals: Felix Cantu MD [Medical Doctor] - Florentin Salazar MD [Primary Care Provider] - Brittney Moore MD [Medical Doctor] - Additional Instructions: Please wear boot during the day. Elevate your foot frequently throughout the day. Over the counter tylenol and / or ibuprofen per package instructions as needed for pain. Important to follow up with orthopedic doctor. Follow up within one week. Follow up with Dr. Salazar per routine. Seek medical attention for worse or new problems. - Billing Disposition and Condition Condition: STABLE Disposition: Home
== END 2018-07-01 12:37 | disposition home or self-care (01) ==
LOC: UCCORT 09:47
DX: S92.514A Nondisplaced fracture of proximal phalanx of right lesser toe(s), initial encounter for closed fracture (principal); W22.8XXA Striking against or struck by other objects, initial encounter; Y92.9 Unspecified place or not applicable; Z88.4 Allergy status to anesthetic agent; Z88.1 Allergy status to other antibiotic agents; Z88.0 Allergy status to penicillin; Z88.2 Allergy status to sulfonamides; Z87.891 Personal history of nicotine dependence
CPT/HCPCS: 99212; G0463

== ENCOUNTER 2020-01-27 00:49 | Observation (INO) ==
[2020-01-27 02:41] LABS: ABS Basophils 0.1 10^3/ul (0-0.2); ABS Lymphocytes 0.9 10^3/ul (1.0-4.8); ABS Monocytes 0.5 10^3/ul (0-0.8); Eosinophil % 0.5 %; Hematocrit 42 % (35-47); Hemoglobin 14.9 g/dL (12.0-16.0); Lymphocyte % 10.5 %; Mean Corpuscular HGB Conc 35 g/dL (31-36); Mean Corpuscular Hemoglobin 31 pg (27-31); Mean Corpuscular Volume 88 fL (80-97); Mean Platelet Volume 7.6 fL (7.4-10.4); Platelet Count 176 10^3/uL (150-450); Red Blood Count 4.77 10^6 /uL (3.70-4.87); Red Cell Distribution Width 13 % (10-15); White Blood Count 8.6 10^3/uL (3.5-10.8)
[2020-01-27 02:52] LABS: Urine Appearance Clear; Urine Bilirubin Negative (Negative); Urine Blood Negative (Negative); Urine Color Yellow; Urine Glucose Negative (Negative); Urine Ketones 1+ (Negative); Urine Nitrite Negative (Negative); Urine Protein Negative (Negative); Urine Specific Gravity 1.017 (1.010-1.030); Urine Urobilinogen Negative (Negative)
[2020-01-27 02:57] LABS: ALT 11 U/L (7-52); Albumin 4.4 g/dL (3.2-5.2); Albumin/Globulin Ratio 1.5 (1-3); Alkaline Phosphatase 58 U/L (34-104); BUN/Creatinine Ratio 22.4 (8-20); Blood Urea Nitrogen 24 mg/dL (6-24); CO2 Carbon Dioxide 22 mmol/L (22-32); Calcium 9.8 mg/dL (8.6-10.3); Chloride 105 mmol/L (101-111); EGFR Non-African American 50.4 (>60); Globulin 2.9 g/dL (2-4); Glucose 114 mg/dL (70-100); Magnesium 2.1 mg/dL (1.9-2.7); Sodium 136 mmol/L (135-145); Total Protein 7.3 g/dL (6.4-8.9)
[2020-01-27 03:33] LABS: Anion Gap 9 mmol/L (2-11)
[2020-01-27 03:41] LABS: AST 17 U/L (13-39); Potassium 3.9 mmol/L (3.5-5.0)
[2020-01-27 03:44] LABS: Alcohol, S < 10 mg/dL (<10)
[2020-01-27 04:02] LABS: TSH (Thyroid Stimulating Horm) 3.67 mcIU/mL (0.34-5.60)
[2020-01-27 04:56] LABS: Cholesterol 224 mg/dL; HDL Cholesterol 53.2 mg/dL; LDL Cholesterol 140 mg/dL; Triglycerides 153 mg/dL
[2020-01-27] MEDS ORDERED: NS 0.9% 1000 ml BAG 1,000 ML IV SCH (05:00)
[2020-01-27] MEDS ORDERED: Diazepam 5 mg TAB (*) PO ONE (11:19)
[2020-01-27] MEDS ORDERED: Cyanocobalamin INJ 1,000 MCG/ML VIAL 1 ML VIAL IM ONE (13:43)
[2020-01-27] MEDS ORDERED: Enoxaparin 40 MG/0.4 ML SYR(*) SUBCUT SCH (21:00)
[2020-01-29 11:18] VITALS: BP 137/64
== END 2020-01-29 11:05 | disposition home or self-care (01) ==
LOC: ED 00:49 → MEDTELE 00:49
PROVIDERS: ADMIT Hospitalist; ATTEND Internal Medicine

== ENCOUNTER 2020-04-18 09:38 | Inpatient (IN) ==
[2020-04-18] MEDS ORDERED: NS 0.9% 1000 ml BAG 1,000 ML IV ONE ×2 (10:01→15:44)
[2020-04-18 10:37] LABS: ABS Eosinophils 0.1 10^3/ul (0-0.6); ABS Lymphocytes 1.3 10^3/ul (1.0-4.8); ABS Monocytes 1.3 10^3/ul (0-0.8); ABS Neutrophils 4.8 10^3/ul (1.5-7.7); Eosinophil % 1.9 %; Hematocrit 43 % (35-47); Hemoglobin 15.1 g/dL (12.0-16.0); Mean Corpuscular HGB Conc 35 g/dL (31-36); Mean Corpuscular Hemoglobin 31 pg (27-31); Mean Corpuscular Volume 88 fL (80-97); Mean Platelet Volume 7.9 fL (7.4-10.4); Platelet Count 209 10^3/uL (150-450); Red Cell Distribution Width 13 % (10-15); White Blood Count 7.5 10^3/uL (3.5-10.8)
[2020-04-18 10:44] LABS: Albumin 4.2 g/dL (3.2-5.2); Albumin/Globulin Ratio 1.5 (1-3); BUN/Creatinine Ratio 11.2 (8-20); C Reactive Protein 88.83 mg/L (<8.01); Calcium 9.7 mg/dL (8.6-10.3); EGFR Non-African American 50.4 (>60); Globulin 2.8 g/dL (2-4); Magnesium 1.7 mg/dL (1.9-2.7); Total Bilirubin 1.2 mg/dL (0.2-1.0)
[2020-04-18] MEDS: Potassium Chlor 20 meq TAB.ER PO ONE ×2 (10:49→10:53)
[2020-04-18] MEDS ORDERED: Potassium Chloride LIQUID 20 MEQ/15 ML LIQUID PO ONE (10:56)
[2020-04-18 11:50] LABS: Influenza A Molecular Negative (Negative); Influenza B Molecular Negative (Negative)
[2020-04-18 12:38] LABS: Urine Appearance Clear; Urine Bilirubin Negative (Negative); Urine Blood Negative (Negative); Urine Color Straw; Urine Glucose Negative (Negative); Urine Ketones Trace (Negative); Urine Nitrite Negative (Negative); Urine Protein Negative (Negative); Urine Specific Gravity 1.003 (1.010-1.030); Urine Urobilinogen Negative (Negative)
[2020-04-18 12:47] LABS: Urine Bacteria Absent (Absent); Urine Red Blood Cell Trace(0-2/hpf) (Absent); Urine Squamous Epithelial Cell Present (Absent); Urine White Blood Cell Trace(0-5/hpf) (Absent)
[2020-04-18] MEDS ORDERED: Ondansetron 4 mg VIAL 2 MG/ML 2 ml VIAL IV ONE (15:42)
[2020-04-18] MEDS ORDERED: Metoclopramide 5 MG/ML VIAL (10 mg) IV ONE (17:24)
[2020-04-18] MEDS ORDERED: Prochlorperazine 5 mg/ml 2 ml VIAL (10 mg) IV PRN (17:45)
[2020-04-18] MEDS ORDERED: Ondansetron 4 mg VIAL 2 MG/ML 2 ml VIAL IV PRN (17:45)
[2020-04-18] MEDS: NS 0.9% 1000 ml BAG 1,000 ML IV SCH (20:42)
[2020-04-18] MEDS: Enoxaparin 40 MG/0.4 ML SYR SUBCUT SCH (21:19)
[2020-04-19 05:31] LABS: BUN/Creatinine Ratio 8.7 (8-20); EGFR African American 72.6 (>60); Potassium 3.4 mmol/L (3.5-5.0)
[2020-04-19] MEDS: NS 0.9% 1000 ml BAG 1,000 ML IV SCH ×2 (06:53→22:46)
[2020-04-19] MEDS ORDERED: Potassium Chloride LIQUID 20 MEQ/15 ML LIQUID PO ONE (08:32)
[2020-04-19] MEDS ORDERED: cefTRIAXone 1 gm/50 mL NS BAG 1 GM/50 ML BAG IVPB SCH (15:00)
[2020-04-19] MEDS: Enoxaparin 40 MG/0.4 ML SYR SUBCUT SCH (20:33)
[2020-04-20 08:41] VITALS: BP 117/51
[2020-04-20 09:05] LABS: BUN/Creatinine Ratio 8.3 (8-20); Calcium 8.4 mg/dL (8.6-10.3); EGFR African American 96.3 (>60); EGFR Non-African American 79.6 (>60); Potassium 3.3 mmol/L (3.5-5.0)
== END 2020-04-20 10:30 | disposition home or self-care (01) | DRG 392 ==
LOC: ED 09:38 → MED 09:38
PROVIDERS: ADMIT Hospitalist; ATTEND Student in an Organized Health Care Education/Training Program